=== PATIENT | male | born 1960 | race Caucasian/White ===

== ENCOUNTER 2016-09-30 15:52 | Emergency (ER) | payer OTHER ==
[2016-09-30 16:09] VITALS: BP 124/68; PULSE 87; TEMP 98.6; BMI 31.7
--- NOTE | 2016-09-30 18:21 | PDOC ---
History of Present Illness - General History Source: Patient Exam Limitations: No Limitations - History of Present Illness Initial Comments: 09/30/16 18:29 The patient is a 56 year old male, with a significant past medical history of DM , who presents to the emergency department with left thigh redness/pain s/p dog bite last week. 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 The patient reports the dog is still alive since the bite.The patient reports getting antibiotics, but notes the area has not been improving. He reports the pain has been getting worse in his LLE. He states right after the bite coming to this ER, for treatment a week ago, but no records are available for such visit. He denies any recent fevers, chills, headache or dizziness. He denies any recent nausea, vomit, diarrhea or constipation. He denies any recent chest pain or shortness of breath. He denies any recent dysuria, frequency, urgency or hematuria. Allergies: NKA Past surgical history: None reported. Social History: Nonsmoker. Denies EtOH use and recreational drug use. <Renny Rodriguez - Last Filed: 09/30/16 18:29> <Suzanne Cotton - Last Filed: 09/30/16 18:44> - General Chief Complaint: Redness To Affected Area Stated Complaint: REVISIT/ LT THIGH PAIN Time Seen by Provider: 09/30/16 18:03 Past History <Renny Rodriguez - Last Filed: 09/30/16 18:29> - Past Medical History Anemia: No Asthma: No Cancer: No Cardiac Disorders: No CVA: No COPD: No CHF: No Dementia: No Diabetes: Yes (pre) GI Disorders: No Disorders: No HTN: No Hypercholesterolemia: Yes Liver Disease: No Seizures: No Thyroid Disease: No - Surgical History Abdominal Surgery: No Appendectomy: No Cardiac Surgery: No Cholecystectomy: No Lung Surgery: No Neurologic Surgery: No Orthopedic Surgery: No - Immunization History Immunization Up to Date: Yes - Psycho/Social/Smoking Cessation Hx Anxiety: No Suicidal Ideation: No Smoking Status: Yes Smoking History: Never smoked Have you smoked in the past 12 months: No Number of Cigarettes Smoked Daily: 20 Information on smoking cessation initiated: No 'Breaking Loose' booklet given: 07/19/14 Hx Alcohol Use: No Drug/Substance Use Hx: No Substance Use Type: None Hx Substance Use Treatment: No <CottonSuzanne andino - Last Filed: 09/30/16 18:44> - Past Medical History Allergies/Adverse Reactions: Allergies Allergy/AdvReac Type Severity Reaction Status Date / Time No Known Drug Allergies Allergy Verified 09/30/16 16:06 Home Medications: Ambulatory Orders NK [No Known Home Medication] 12/06/15 Review of Systems - Review of Systems Able to Perform ROS?: Yes Comments:: 09/30/16 18:29 GENERAL/CONSTITUTIONAL: No: fever, chills, weakness, loss of appetite. HEAD, EYES, EARS, NOSE AND THROAT: No: change in vision, ear pain, discharge, sore throat, throat swelling. CARDIOVASCULAR: No: chest pain, lightheadedness, palpitations, syncope RESPIRATORY: No: cough, shortness of breath, wheezing, hemoptysis, stridor. GASTROINTESTINAL: No: nausea, vomiting, diarrhea, abdominal cramping, rectal bleeding, constipation. GENITOURINARY: No: dysuria, hematuria, frequency, urgency, flank pain. MUSCULOSKELETAL: +left thigh pain. No: back pain, neck pain, joint pain, muscle swelling or pain SKIN : No: lesions, pallor, rash or easy bruising. NEUROLOGIC: No: headache, vertigo, paresthesias, weakness ENDOCRINE: No: unexplained weight gain or loss HEMATOLOGIC/LYMPHATIC: No: anemia, easy bleeding, swelling nodes. <Renny Rodriguez - Last Filed: 09/30/16 18:29> *Physical Exam - Vital Signs Last Vital Signs Temp Pulse Resp BP Pulse Ox 98.6 F 87 18 124/68 100 09/30/16 16:06 09/30/16 16:06 09/30/16 16:06 09/30/16 16:06 09/30/16 16:06 - Physical Exam Comments: 09/30/16 18:29 GENERAL: The patient is in no acute distress. HEAD: Normal with no signs of trauma. EYES: PERRLA, EOMI, sclera anicteric, conjunctiva clear. ENT: Ears normal, nares patent, oropharynx clear without exudates. Moist mucous membranes. NECK: Normal range of motion, supple without lymphadenopathy, JVD, or masses. LUNGS: Breath sounds equal, clear to auscultation bilaterally. No wheezes, and no crackles. HEART: Regular rate and rhythm, normal S1 and S2 without murmur, rub or gallop. ABDOMEN: Soft, nontender, normoactive bowel sounds. No guarding, no rebound. No masses palpable. EXTREMITIES: Normal range of motion. LEFT lateral thigh just above the knee there is a 6cm by 6cm area of resolving hematoma and old dog bite carson. Patient is compliant with augmentin, however area is warm/tender with no surrounding area of erythema. NEUROLOGICAL: Cranial nerves II through XII grossly intact. Normal speech. No focal neurological deficits. MUSCULOSKELETAL: Back non-tender to palpation, no CVA tenderness SKIN: Warm, Dry, normal turgor, no rashes or lesions noted. <Renny Rodriguez - Last Filed: 09/30/16 18:29> - Vital Signs Last Vital Signs Temp Pulse Resp BP Pulse Ox 98.6 F 87 18 124/68 100 09/30/16 16:06 09/30/16 16:06 09/30/16 16:06 09/30/16 16:06 09/30/16 16:06 <Suzanne Cotton - Last Filed: 09/30/16 18:44> Medical Decision Making - Medical Decision Making 09/30/16 18:41 Pt was bitten by a friend's dog. Pt states that the dog has all of its shots and that he is able to monitor the dog for the next week to make sure it doesn' t - so he won't require rabies vaccine. Pt is diabetic and he is compliant with Augmentin. Tdap is UTD; Pt will be sent for a CT lower extemity, as he is complaining of pain in the left lateral thigh. Pulses of DT PT and popliteals feel normal. Pt will also have CBC and COMP. He will be signed out to the night doc. <Suzanne Cotton - Last Filed: 09/30/16 18:44> *DC/Admit/Observation/Transfer - Attestations Scribe Attestion: 09/30/16 18:31 Documentation prepared by Renny Rodriguez, acting as medical records auditor for Suzanne Cotton MD. <Renny Rodriguez - Last Filed: 09/30/16 18:29>
[2016-09-30] MEDS ORDERED: OXYCODONE/APAP 5/325MG COMBO TABLET PO ONE (18:50)
[2016-09-30] MEDS ORDERED: OXYCODONE/APAP 5/325MG COMBO TABLET ONE (18:51)
[2016-09-30 19:16] LABS: BASOPHIL 1.5 % (0-2.0); EOSINOPHIL 2.6 % (0-4.5); MCH 30.4 pg (25.7-33.7); MCHC 34.3 g/dl (32.0-35.9); MEAN CELL VOLUME 88.7 fl (80-96); MEAN PLT VOLUME 8.3 fl (7.5-11.1); NEUTROPHILS 53.6 % (42.8-82.8); PLATELET COUNT 239 K/MM3 (134-434); RDW 13.3 % (11.9-15.9); WHITE BLOOD COUNT 9.5 K/mm3 (4.0-10.0)
[2016-09-30 20:00] LABS: ANION GAP 5 (8-16); CALCIUM 9.1 mg/dL (8.5-10.1); CO2 26 mmol/L (21-32); CREATININE 0.6 mg/dL (0.7-1.3); GLUCOSE,RANDOM 116 mg/dL (74-106); SGOT/AST 17 U/L (15-37)
[2016-09-30 20:05] LABS: ALK PHOS 94 U/L (45-117); BILIRUBIN,TOTAL 0.5 mg/dL (0.2-1.0); SGPT/ALT 24 U/L (12-78)
--- NOTE | 2016-09-30 21:19 | PDOC ---
*Physical Exam - Vital Signs Last Vital Signs Temp Pulse Resp BP Pulse Ox 98.6 F 87 18 124/68 100 09/30/16 16:06 09/30/16 16:06 09/30/16 16:06 09/30/16 16:06 09/30/16 16:06 ED Treatment Course - LABORATORY CBC & Chemistry Diagram: 09/30/16 18:55 09/30/16 18:55 - ADDITIONAL ORDERS Additional order review: Laboratory Results 09/30/16 18:55 Sodium 138 Potassium 4.1 Chloride 107 Carbon Dioxide 26 Anion Gap 5 L BUN 13 Creatinine 0.6 L Creat Clearance w eGFR > 60 Random Glucose 116 H Calcium 9.1 Total Bilirubin 0.5 AST 17 ALT 24 Alkaline Phosphatase 94 Total Protein 7.0 Albumin 4.0 09/30/16 18:55 RBC 5.36 MCV 88.7 MCHC 34.3 RDW 13.3 MPV 8.3 Neutrophils % 53.6 Lymphocytes % 32.9 Monocytes % 9.4 Eosinophils % 2.6 Basophils % 1.5 - Medications Given in the ED: ED Medications Discontinued Medications Generic Name Dose Route Start Last Admin Trade Name Freq PRN Reason Stop Dose Admin Oxycodone/Acetaminophen 2 combo 09/30/16 18:50 09/30/16 19:16 Percocet 5/325 - PO 09/30/16 18:51 1 combo NOW ONE Administration Medical Decision Making - Medical Decision Making 09/30/16 21:[address] scan is negative for abscess of left lower extremity. Pt to continue on 3 more days of antibiotics. Pt to be discharged. *DC/Admit/Observation/Transfer Diagnosis at time of Disposition: Visit for wound check - Discharge Dispostion Disposition: HOME Condition at time of disposition: Stable Admit: No - Patient Instructions Printed Discharge Instructions: DI for Puncture Wound
[2016-09-30] MEDS ORDERED: MAG HYDROX/AL HYDROX/SIMETH 30 ML UNIT-DOSE CUP ONE (21:36)
== END 2016-09-30 21:48 | disposition home or self-care (01) ==
LOC: JER 15:52
DX: M79.652 Pain in left thigh (principal); S71.152D Open bite, left thigh, subsequent encounter; W54.0XXD Bitten by dog, subsequent encounter
CPT/HCPCS: 36415; 73700-TC-RT; 80053; 85025; 99282-25